=== PATIENT | female | born 2000 | race Caucasian/White ===

== ENCOUNTER 2019-07-25 11:58 | Inpatient (IN) ==
[2019-07-25 12:29] LABS: Bilirubin,Urine Negative (Negative); Blood,Urine Negative (Negative); Clarity,Urine Cloudy (Clear); Color,Urine Yellow (Yellow); Glucose,Urine (UA) Normal (Normal); Ketones,Urine Trace mg/dL (Negative); Leukocyte Esterase,Urine Negative (Negative); Nitrite,Urine Negative (Negative); Protein,Urine Trace mg/dL (Neg-Trace); Specific Gravity,Urine 1.027 (1.010-1.025); Urobilinogen,Urine Normal (Normal)
[2019-07-25 12:30] LABS: Bacteria,Urine Moderate per hpf (None-Few); Hyaline Casts,Urine Few per lpf (None-Few); Squamous Epithelial Cell,Urine Many per lpf (None-Few)
[2019-07-25 12:39] LABS: Mucus,Urine Moderate (Few); RBC,Urine 0-3 per hpf (0-3)
[2019-07-25 12:45] LABS: Basophils # 0.1 K/mcL (0.0-0.2); Basophils % 1.3 %; Eosinophils # 0.1 K/mcL (0.0-0.6); Eosinophils % 1.6 %; Hematocrit 37.4 % (35.3-44.9); Hemoglobin 11.6 g/dL (11.5-15.4); Immature Granulocytes % 0.3 % (0-4); Lymphocytes # 1.3 K/mcL (0.6-4.6); Lymphocytes % 21.2 %; Mean Corpuscular Hemoglobin 25.1 pg (28.0-33.3); Mean Corpuscular Volume 80.8 fL (83.0-100.0); Mean Platelet Volume 10.1 fL (9.4-12.4); Monocytes # 0.5 K/mcL (0.0-1.3); Monocytes % 8.2 %; Neutrophils # 4.2 K/mcL (1.6-8.9); Platelet Count 320 K/mcL (140-400); Red Blood Count 4.63 M/mcL (3.82-4.97); Red Cell Distribution Width 16.8 % (11.5-14.5); Segmented Neutrophils % 67.4 %; White Blood Count 6.2 K/mcL (4.3-11.1)
[2019-07-25 12:54] LABS: Amphetamine Screen,Urine Negative ng/mL (Cutoff=1000); Barbiturate Screen,Urine Negative ng/mL (Cutoff=200); Benzodiazepines Screen,Urine Negative ng/mL (Cutoff=200); Cannabinoid Screen,Urine Positive ng/mL (Cutoff = 50); Cocaine Screen,Urine Negative ng/mL (Cutoff= 300); Opiate Screen,Urine Negative ng/mL (Cutoff=300); Phencyclidine Screen,Urine Negative ng/mL (Cutoff=25)
[2019-07-25 13:04] LABS: Acetaminophen < 10 mcg/mL (10-20); BUN/Creatinine Ratio 8 (6-26); Blood Urea Nitrogen 5 mg/dL (6-20); Calcium 9.4 mg/dL (8.6-10.3); Carbon Dioxide 23 mEq/L (23-29); Chloride 105 mEq/L (98-107); Ethanol < 10 mg/dL (Less than 10); Glucose 92 mg/dL (70-105); Osmolality,Calculated 283 (280-300); Potassium 3.8 mEq/L (3.5-5.1); Salicylate < 2.5 mg/dL (15.0-30.0); Sodium 138 mEq/L (136-145); eGFR For African Americans > 60 (> 60); eGFR For Non-African Americans > 60 (> 60)
[2019-07-25] MEDS ORDERED: Haloperidol Lactate 5 MG/ML VIAL IM PRN (14:52)
[2019-07-25] MEDS ORDERED: MOM Conc 10 ML UD.LIQ PO PRN (14:52)
[2019-07-25] MEDS ORDERED: Acetaminophen 325 MG TABLET PO PRN (14:52)
[2019-07-25] MEDS ORDERED: Mag Hydrox/Al Hydrox/Simeth 30 ML UDC PO PRN (14:52)
[2019-07-25] MEDS ORDERED: *HR* LORazepam 1 MG TABLET PO PRN (14:52)
[2019-07-25] MEDS ORDERED: *HR* LORazepam 2 MG/ML VIAL IM PRN (14:52)
[2019-07-25] MEDS ORDERED: Nicotine 2 MG GUM BC PRN (15:29)
[2019-07-25] MEDS ORDERED: Ibuprofen 400 MG TABLET PO PRN (15:29)
[2019-07-25] MEDS: hydrOXYzine pamoate 25 MG CAPSULE PO PRN ×2 (18:40→22:34)
[2019-07-25] MEDS: traZODone 50 MG TABLET PO PRN ×2 (20:46→22:17)
[2019-07-25] MEDS ORDERED: Mirtazapine 15 MG TABLET PO SCH (21:00)
[2019-07-26 08:20] LABS: Chol/HDL Ratio 2.6 (0-4.9)
[2019-07-26] MEDS: Lurasidone 20 MG TABLET PO SCH (08:49)
[2019-07-26] MEDS: hydrOXYzine pamoate 25 MG CAPSULE PO PRN (20:06)
[2019-07-26] MEDS ORDERED: traZODone 50 MG TABLET PO SCH (21:00)
[2019-07-27] MEDS: Lurasidone 20 MG TABLET PO SCH (08:47)
[2019-07-27 09:26] VITALS: BP 102/64
== END 2019-07-27 13:05 | disposition home or self-care (01) | DRG 885 ==
LOC: EMEROOARM 11:58 → 1ANU 14:49
PROVIDERS: ADMIT Psychiatry & Neurology Psychiatry; ATTEND Psychiatry & Neurology Psychiatry